=== PATIENT | female | born 1960 | race Two or more races ===

== ENCOUNTER 2018-04-30 10:11 | Day surgery (SDC) | payer OTHER ==
[2018-04-30] MEDS ORDERED: fentaNYL 100 MCG/2 ML INJECTION (J3010) As Ordered (10:29)
[2018-04-30] MEDS ORDERED: PROPOFOL 200 MG/20 ML VIAL As Ordered (10:30)
[2018-04-30] MEDS ORDERED: LIDOCAINE 2% INJ 100 MG/5 ML SDV (FOR ANES.) As Ordered (10:30)
[2018-04-30] MEDS: NS 1,000 ML IV (10:49)
== END 2018-04-30 12:18 | disposition home or self-care (01) ==
LOC: M OPP 10:11
DX: R10.13 Epigastric pain (principal); R12 Heartburn; R11.0 Nausea; I10 Essential (primary) hypertension; K76.9 Liver disease, unspecified; K21.9 Gastro-esophageal reflux disease without esophagitis; M19.90 Unspecified osteoarthritis, unspecified site; R51 Headache; Z78.0 Asymptomatic menopausal state; R06.83 Snoring; Z79.899 Other long term (current) drug therapy; Z80.1 Family history of malignant neoplasm of trachea, bronchus and lung; Z80.0 Family history of malignant neoplasm of digestive organs; Z80.6 Family history of leukemia
CPT/HCPCS: 43239

== ENCOUNTER → 2018-05-24 | Outpatient (CLI) | payer OTHER ==
[~2018-05-24] MED LIST: GASTROGRAFIN SOLUTION 30ML (Q9963) As Ordered; ISOVUE-370 76% 100ML VIAL (Q9967) As Ordered
== END ==
LOC: M RAD 15:42
DX: R10.9 Unspecified abdominal pain (principal); K76.0 Fatty (change of) liver, not elsewhere classified
CPT/HCPCS: Q9963